=== PATIENT | male | born 1950 | race Hispanic/Latino ===

== ENCOUNTER 2018-03-10 08:40 | Day surgery (SDC) | payer OTHER ==
--- NOTE | 2018-03-10 09:00 | RAD REPORT ---
EXAM DESCRIPTION: RAD - Chest Pa And Lat (2 Views) - 03/10/2018 8:26 am CLINICAL HISTORY: Hernia/abdominal pain Chest pain. COMPARISON: No comparisons FINDINGS: The lungs are clear. The heart is normal in size. No displaced fractures. IMPRESSION: No acute or concerning finding suspected.
[2018-03-10] MEDS ORDERED: Ringers Lactate 1,000 ML IV ONE ×2 (09:10→13:12)
[2018-03-10] MEDS ORDERED: CEFAZOLIN/SWI 1gm 1 GM/10 ML SYR ONE (09:10)
[2018-03-10] MEDS ORDERED: FENTANYL CITR 100 MCG/2 ML ONE (11:22)
[2018-03-10] MEDS ORDERED: MIDAZOLAM HCL 2 MG/2 ML INJ ONE (11:22)
[2018-03-10] MEDS ORDERED: LIDOCAINE 2% MPF 5 ML VIAL ONE (11:22)
[2018-03-10] MEDS ORDERED: PROPOFOL 200 MG/20 ML VIAL IV ONE (11:22)
[2018-03-10] MEDS ORDERED: ROCURONIUM 50 MG/5 ML VIAL IV ONE (11:22)
[2018-03-10] MEDS ORDERED: ONDANSETRON HCL 40 MG/20 ML VIAL ONE (11:22)
[2018-03-10] MEDS ORDERED: NEOSTIGMINE 1 MG/ML -5 ML SYRINGE ONE (12:09)
[2018-03-10] MEDS ORDERED: GLYCOPYRROLATE 0.2 MG/ML SYR ONE (12:09)
[2018-03-10] MEDS: MORPHINE 4 MG/ML SYR ONE ×4 (12:43→13:05)
[2018-03-10] MEDS ORDERED: HYDROCODONE/APAP 7.5/325 MG TAB ONE (13:57)
--- NOTE | 2018-03-10 15:46 | OP ---
Date of Procedure: 03/10/2018 Surgeon: Delroy Stone MD Preoperative Diagnosis: Right inguinal hernia. Postoperative Diagnosis: Right inguinal hernia. Procedure: Repair of right inguinal hernia. Estimated Blood Loss: Minimal. Specimen: Cord lipoma. Findings: Direct right inguinal hernia. Anesthesia: General. Complications: None. Disposition: The patient tolerated the procedure in stable condition and taken to Recovery in good g eneral condition. Procedure In Detail: The patient was brought to the OR and placed in supine position. General anest hesia was begun. The patient was prepped and draped in usual sterile fashion. Marcaine 0.5% was inf iltrated locally. A 15-blade was used to make a 5 cm oblique incision between the anterior iliac sup erior spine and right pubic tubercle. Subcutaneous tissue was divided. Humphrey's fascia was identifi ed and divided. Aponeurosis was identified and mobilized inferior to expose shelving edge, and then cut through the external ring and then ilioinguinal nerve identified and retracted out of the field o f dissection. Cord mobilized and skeletonized. There was a direct hernia, which was reduced back in the peritoneal cavity. Approximately, a 2 cm defect remained. Couple of [id number] 2-0 Prolen e sutures were used to close that defect. Marlex mesh plug was placed in the internal ring, secured with VersaTack stapler. Onlay mesh was placed on the inguinal floor, secured medially to the pubic t ubercle, inferior to the shelving edge, superior to the conjoined tender, and laterally to each other . Then, ilioinguinal nerve and cord structures placed back in anatomical location. A 2-0 Prolene wa s used to close the aponeurosis and a 3-0 chromic was used to close Humphrey's fascia. Ata were us ed to close the skin. Sterile dressing was applied. The patient was awakened and taken to Recovery in good general condition. Discharge Note: The patient will go to Day Surgery and home when stable. Disposition: Home. Condition: Stable. Discharge Instructions: Resume home medications and diet. Activity as tolerated. No heavy lifting. Remove outer dressing in 2 days. Shower. Keep wound clean and dry. Ice pack, scrotal support, Ty lenol No. 3 one tablet p.o. q.4 p.r.n. pain. Follow up in my office in a week. Call for appointment . KLARISSA/NEHEMIAS Voice ID: [id number] Report ID: [id number]
--- NOTE | 2018-03-11 06:52 | EKG ---
Test Date: 2018-03-10 Test Time: 08:13:12 Nca Certified Concierge: ERLIN MEASUREMENT RESULTS: Intervals: Rate: 63 HI: 186 QRSD: 92 QT: 384 QTc: 392 Phenix: P: 50 HI: 186 QRS: 18 T: 31 INTERPRETIVE STATEMENTS: Normal sinus rhythm Normal ECG Compared to ECG 01/17/2016 09:06:06 No significant changes Electronically Signed On 03-11-18 06:51:34 CDT by Minesh Musa
== END 2018-03-10 14:45 | disposition home or self-care (01) ==
LOC: OR 08:40
PROVIDERS: ATTEND Surgery
PROC: 0YU50JZ Supplement Right Inguinal Region with Synthetic Substitute, Open Approach (ICD-10-PCS; principal; 2018-03-10 10:30)
DX: K40.90 Unilateral inguinal hernia, without obstruction or gangrene, not specified as recurrent (principal)
CPT/HCPCS: 49505; 71046; 88302; 93005; J0690; J2250; J2405; J2710; J3010; 88304

== ENCOUNTER 2020-02-12 06:20 | Day surgery (SDC) | payer OTHER ==
--- NOTE | 2020-02-09 12:51 | RAD REPORT ---
EXAM DESCRIPTION: Gemma Valenzuela (2 Views)02/09/2020 12:44 pm CLINICAL HISTORY: Preop for hemorrhoid surgery COMPARISON: 2018 FINDINGS: The lungs appear clear of acute infiltrate. The heart is normal size. Mild pleural thicke tomeka is unchanged IMPRESSION: No acute abnormalities displayed
[2020-02-09 13:06] LABS: Absolute Lymphocytes (CBC) 1.4 K/uL (0.7-4.9); Basophils % 0.5 % (0-1.3); Hematocrit 47.2 % (39.6-49.0); Lymphocytes % 18.4 % (15.3-44.8); MPV 7.7 fL (7.6-11.3); RBC Red Blood Cell Count 5.09 M/uL (4.33-5.43)
[2020-02-09 13:24] LABS: Potassium 3.9 mmol/L (3.5-5.1)
[2020-02-12] MEDS ORDERED: CEFOXITIN/SWI 1gm 1 GM/10 ML SYR ONE (06:49)
[2020-02-12] MEDS ORDERED: Ringers Lactate 1,000 ML IV ONE ×2 (06:49→08:44)
[2020-02-12] MEDS ORDERED: FENTANYL CITR 100 MCG/2 ML ONE (07:12)
[2020-02-12] MEDS ORDERED: LIDOCAINE 2% MPF 5 ML VIAL ONE (07:12)
[2020-02-12] MEDS ORDERED: dexAMETHasone 10 MG/ML VIAL ONE (07:12)
[2020-02-12] MEDS ORDERED: propofoL 200 MG/20 ML VIAL IV ONE (07:12)
[2020-02-12] MEDS ORDERED: MIDAZOLAM HCL 2 MG/2 ML INJ ONE (07:12)
[2020-02-12] MEDS ORDERED: KETOROLAC 30 MG/ML INJ ONE (08:04)
[2020-02-12] MEDS ORDERED: ONDANSETRON 4 MG/2 ML VIAL ONE (08:44)
--- NOTE | 2020-02-12 08:58 | OP ---
Date of Procedure: 02/12/2020 Surgeon: Delroy Stone MD Preoperative Diagnoses: Complex hemorrhoids and history of rectal polyp. Postoperative Diagnosis: Complex hemorrhoids and history of rectal polyp. Procedure: Exam under anesthesia, rigid proctoscopy, and complex hemorrhoidectomy x2. Estimated Blood Loss: Minimal. Specimen: Right anterior and right posterior complex hemorrhoids with internal and external componen ts. Findings: As above. Anesthesia: General. Complications: None. Patient tolerated the procedure in stable condition, taken to Recovery in good general condition. Procedure In Detail: Patient was brought to the OR and placed in supine position. General anesthesi a was begun. The patient placed in lithotomy position. Prepped draped in the usual sterile fashion. Exam under anesthesia revealed 2 complex hemorrhoids on the right side, anterior and posterior. Th e rigid proctoscopy was performed. There was no rectal polyp that I could see, patient had it remove d by Dr. Sewell and pathology was a tubular adenoma. So at this point, Harmonic scalpel was used to excise both complex hemorrhoids in the right anterior and right posterior and sent to Pathology. Aft er being appropriately labeled, bleeding controlled with cautery. Marcaine 0.5% infiltrated for post op pain control. Then, a rectal pack consisting of Gel-Foam, Surgicel, Vaseline gauze was placed in the anal canal. Sterile dressing was applied. dressing was applied. Patient was awakened and taken to Recovery in good general condition. Discharge Note: Patient will go to day surgery and home when stable. Disposition: Home. Condition: Stable. Discharge Instructions: Resume home medications and diet. Activity as tolerated. No heavy lifting. Sitz baths q.i.d., high-fiber diet, Colace 100 mg p.o. b.i.d., Procto-HC 2.5% to anus b.i.d. and p. r.n., and Tylenol No.3 one tablet p.o. q.4 p.r.n. pain. Follow up in my office in 2 weeks. Call for appointment. KLARISSA/NEHEMIAS Voice ID: [id number] Report ID: [id number]
[2020-02-12] MEDS ORDERED: HYDROCODONE/APAP 7.5/325 MG TAB ONE (09:28)
[2020-02-12 12:00] VITALS: BP 130/73; TEMP 97.4; O2SAT 99
== END 2020-02-12 09:50 | disposition home or self-care (01) ==
LOC: OR 06:20
PROVIDERS: ATTEND Surgery
PROC: 0DJD8ZZ Inspection of Lower Intestinal Tract, Via Natural or Artificial Opening Endoscopic (ICD-10-PCS; 2020-02-12)
PROC: 06BY4ZC Excision of Hemorrhoidal Plexus, Percutaneous Endoscopic Approach (ICD-10-PCS; principal; 2020-02-12 07:30)
DX: K64.8 Other hemorrhoids (principal); D12.4 Benign neoplasm of descending colon; G89.18 Other acute postprocedural pain; Z87.19 Personal history of other diseases of the digestive system; Z79.899 Other long term (current) drug therapy
CPT/HCPCS: 93005; 85025; 80048; 36415; 88304; 71046; 46260; 45300; U0002; J2704; J2250; J3010; J1100; J7120 ×2; J2405